=== PATIENT | male | born 1970 | race Caucasian/White ===

== ENCOUNTER 2022-11-17 11:49 | Emergency (ER) | payer OTHER ==
[~2022-11-17] VITALS: Ht 185.4 cm; Wt 83.0 kg
[2022-11-17 11:54] VITALS: BP 136/85
--- NOTE | 2022-11-17 12:45 | NUR ---
AMBULATED TO ER BED 3
[2022-11-17 13:03] VITALS: BP 136/85
--- NOTE | 2022-11-17 13:06 | NUR ---
Patient discharged with v/s stable. Written and verbal after care instructions given and explained. Patient verbalized understanding. Ambulatory with steady gait. All questions addressed prior to discharge. Advised to follow up with PMD. WORK NOTE GIVEN RX: PROMETHAZINE )SENT)
== END 2022-11-17 13:03 | disposition home or self-care (01) ==
LOC: MED 11:49
DX: M62.838 Other muscle spasm (principal); M54.2 Cervicalgia; R51.9 Headache, unspecified; R42 Dizziness and giddiness; Z88.6 Allergy status to analgesic agent
CPT/HCPCS: 99281